=== PATIENT | female | born 1950 ===

== ENCOUNTER 2021-12-11 10:45 | Inpatient (IN) | payer OTHER ==
[~2021-12-11] VITALS: Ht 160 cm; Wt 68.0 kg
[2021-12-11] MEDS ORDERED: VALSARTAN80 MG PO (13:39)
[2021-12-11] MEDS ORDERED: TOPROL XL50 M1 PO (13:40)
[2021-12-11] MEDS ORDERED: ROSUVASTATIN CA40 MG PO (13:40)
[2021-12-11] MEDS ORDERED: OMEGA-31000 MG PO (13:41)
[2021-12-11] MEDS ORDERED: MULTI VITAMIN1 EACH PO (13:41)
[2021-12-17] MEDS ORDERED: FOLIC ACID1 MG (10:39)
[2021-12-17] MEDS ORDERED: INTEGRA PLUS C1 EACH (10:39)
[2021-12-17] MEDS ORDERED: XARELTO10 M1 (10:39)
[2021-12-17] MEDS ORDERED: POLYMYXIN B-TMP10 ML (10:40)
[2021-12-17] MEDS ORDERED: ROSUVASTATIN CAL5 MG (10:40)
[2021-12-17] MEDS ORDERED: ALENDRONATE SOD70 MG (10:40)
[2021-12-17] MEDS ORDERED: EYE ITCH RELIEF5 ML (10:40)
== END 2021-12-20 17:56 | DRG 470 ==
LOC: SURH 12-17 07:00 → O/R 12-17 08:25 → SURH 12-17 08:30
PROVIDERS: ADMIT Orthopaedic Surgery; ATTEND Orthopaedic Surgery
PROC: 0SRD0J9 Replacement of Left Knee Joint with Synthetic Substitute, Cemented, Open Approach (ICD-10-PCS; principal; 2021-12-17 08:30)
PROC: 30233N1 Transfusion of Nonautologous Red Blood Cells into Peripheral Vein, Percutaneous Approach (ICD-10-PCS; 2021-12-19)
DX: M17.12 Unilateral primary osteoarthritis, left knee (principal); D62 Acute posthemorrhagic anemia; I10 Essential (primary) hypertension; Z20.822 Contact with and (suspected) exposure to COVID-19